=== PATIENT | male | born 1955 | race Caucasian/White ===

== ENCOUNTER → 2018-02-27 12:53 | Outpatient (CLI) | payer OTHER ==
[2014-09-03 12:30] VITALS: BMI 40.6
[~2018-02-27 12:53] MED LIST: DITROPAN X5 MG/BOTTL PO; GLUCOPHAGE500 MG; OXYCONTIN10 MG; PHENAZOPYRIDIN100 MG PO; TOPROL XL25 MG; VALIUM 2 MG TAB2 MG
== END | disposition home or self-care (01) ==
LOC: D.CT 12:53
DX: R10.9 Unspecified abdominal pain (principal)